=== PATIENT | male | born 1970 | race Caucasian/White ===

== ENCOUNTER 2018-06-26 20:10 | Emergency (ER) | payer OTHER, MEDICAID ==
[~2018-06-26] VITALS: Ht 177.8 cm; Wt 100.7 kg
[~2018-06-26 20:10] MED LIST: ALLEGRA ALLERG180 MG PO; ALLEGRA-D 24 H1 EACH; AMRIX30 MG; AMRIX30 MG PO; ATIVAN1 MG PO; ATIVAN2 MG; ATIVAN2 MG PO; ATROVENT15 ML NS; BACLOFEN; BACLOFEN20 MG PO; BACTRIM DS TAB1 EAC1 PO; BACTRIM DS TAB1 EACH PO; BUPIVICAINE; BUSPIRONE HCL10 MG; CATAPRES-TTS 10.1 MG; CELEBREX 200 M200 M1; CELEBREX50 MG; CELEXA 20 MG TA20 M1 PO; CELEXA 20 MG TA20 MG PO; CELEXA20 MG; CHANTIX1 EACH; CIPRO500 MG PO; CLARITIN10 MG; CLEOCIN HCL150 MG PO; CYCLOBENZAPRINE; CYMBALTA60 MG; DIAZEPAM10 M1 OR; DILAUDID 4 MG TA4 M1 PO; DOXYCYCLINE 10100 MG; DULOXETINE HCL60 MG; EFFEXOR XR75 MG; EFFEXOR XR75 MG PO; EFFEXOR75 MG; EXCEDRIN CAPLE1 EACH; EXCEDRIN CAPLE1 EACH PO; FIBER0.52 GM PO; FLEXERIL; FLEXERIL PO; FLONASE 0.05%50 MCG NASAL; HUMIRA40 MG/0.1; HYDROCODONE; LAMOTRIGINE; LIORESAL 10 MG10 MG; LIORESAL 10 MG10 MG PO; LIORESAL I2000 MCG/1 INTRATHECA; LITHIUM CARBON300 M3; LORAZEPAM 22 MG/1 ML; LORAZEPAM 2MG TA2 M1 PO; LYRICA 75 MG CA75 MG; LYRICA150 MG PO; LYRICA300 MG; MAGNES; MEDROLDOSEPACK PO; METHADONE HCL5 MG PO; MOBIC15 MG; MOBIC15 MG PO; MORPHINE; MOTION RELIEF25 MG PO; MS CONTIN 30 MG30 MG; NAPROSYN500 MG; NAPROXEN DELAY500 M1 PO; NASAL SPRAY30 ML NS; NEURONTIN 300300 M1; NICOTINE TRANSD21 M1; NORCO 5-325 TA1 EACH PO; NORTRIPTYLINE H50 MG; OXCARBAZEPINE300 M1; PAXIL10 MG; PERCOCET 5-3251 EACH PO; PHENERGAN 25 MG25 M1 PO; PHENYLEPHRINE IJ; PRILOSEC 20 MG20 MG; PROAIR HFA8.5 GM; PROVENTIL HFA6.7 G1 INH; REQUIP XL2 MG; REQUIP XL2 MG PO; RISPERDAL 1 MG T1 MG PO; RISPERDAL0.5 MG; SEROQUEL 25 MG25 M1 PO; SEROQUEL 50 MG50 MG; SEROQUEL 50 MG50 MG PO; SEROQUEL XR50 MG; SEROQUEL200 MG; SUDAFED 12 HOU120 MG PO; SYMBICORT160 MCG/4.; SYMBICORT160 MCG/4. INH; TESSALON PERLE100 MG PO; TRAZODONE HCL100 MG; TRILEPTAL 300300 MG PO; TRILEPTAL600 MG; VALIUM10 MG PO; VALIUM5 MG; VALIUM5 MG PO; VENLAFAXIN75 MG/1 T2; VENTOLIN HFA INH8 GM IH; VERAPAMIL HCL80 MG PO; VICOPROFEN 2001 EACH PO; VIVACTIL10 MG; WELLBUTRIN 75 M75 M1; ZANAFLEX2 M1 PO; ZANAFLEX4 M1; ZANAFLEX4 MG; ZANTAC 150MG T150 M1 PO; ZANTAC 150MG T150 MG; ZOFRAN ODT4 MG PO; [UNRECOGNIZED DRUG - OTHER]; [UNRECOGNIZED DRUG - REMARK]
[2018-06-26] MEDS ORDERED: ALLEGRA ALLERGY60 MG PO (20:25)
[2018-06-26] MEDS ORDERED: ZANTAC 150MG T150 MG PO (20:25)
[2018-06-26 21:25] VITALS: BP 96/66
== END 2018-06-26 21:26 | disposition home or self-care (01) ==
LOC: M.ERS 20:10
DX: M62.838 Other muscle spasm (principal); F17.210 Nicotine dependence, cigarettes, uncomplicated; Z88.0 Allergy status to penicillin; Z88.6 Allergy status to analgesic agent; Z88.8 Allergy status to other drugs, medicaments and biological substances

== ENCOUNTER 2019-05-07 00:03 | Emergency (ER) | payer MEDICARE, OTHER, MEDICAID ==
[~2019-05-07] VITALS: Ht 177.8 cm; Wt 106.6 kg
[~2019-05-07 00:03] MED LIST changes: +ALLEGRA ALLERGY60 MG PO; +ZANTAC 150MG T150 MG PO
[2019-05-07] MEDS ORDERED: ZANAFLEX4 M2 PO (00:14)
[2019-05-07] MEDS ORDERED: ENBREL50 MG/1 M2 SUBQ (00:14)
[2019-05-07] MEDS ORDERED: TOPAMAX 25 MG T25 MG PO (00:15)
[2019-05-07 01:08] VITALS: BP 120/79
== END 2019-05-07 01:08 | disposition home or self-care (01) ==
LOC: M.ERS 00:03
DX: G25.82 Stiff-man syndrome (principal); L40.50 Arthropathic psoriasis, unspecified; F17.210 Nicotine dependence, cigarettes, uncomplicated; Z88.0 Allergy status to penicillin; Z88.5 Allergy status to narcotic agent; Z88.4 Allergy status to anesthetic agent